=== PATIENT | male | born 1985 | race Caucasian/White ===

== ENCOUNTER 2017-05-19 01:16 | Emergency (ER) | payer OTHER, SELFPAY ==
--- NOTE | 2017-05-19 01:43 | ERPHSYRPT ---
- History of Present Illness Time Seen by Provider: 05/19/17 01:40 Source: patient, police Exam Limitations: no limitations Patient Subjective Stated Complaint: per law enforcement, pt had a recent break up and has been cutting his arm and leg to release pain. pt denies any suicidal or homicidal ideation Triage Nursing Assessment: pt alert and oriented, answers questions approp. pt ambulatory with steady gait noted. respirations nonlabored with lungs cta. multiple superficial cuts to rt forearm and rt upper leg. no bleeding noted at this ti me. Physician History: per law enforcement, pt had a recent break up and has been cutting his arm and leg to release pain. pt denies any suicidal or homicidal ideation Context related to: significant other Suicidal thoughts: attempt, gesture Associated Symptoms: anxiety Previous symptoms: same symptoms as today Allergies/Adverse Reactions: No Known Drug Allergies Allergy (Verified 05/19/17 01:34) Home Medications: Clonazepam [Klonopin] 0.5 mg PO DAILY PRN PRN 05/19/17 [History] Paroxetine HCl [Paroxetine HCl] 20 mg PO BID 05/19/17 [History] Hx Tetanus, Diphtheria Vaccination/Date Given: Yes (2010) Hx Influenza Vaccination/Date Given: Yes (2013) Hx Pneumococcal Vaccination/Date Given: No Immunizations Up to Date: Yes - Past Medical History Pertinent Past Medical History: Yes Neurological History: Migraines ENT History: No Pertinent History Cardiac History: No Pertinent History Respiratory History: No Pertinent History Endocrine Medical History: No Pertinent History Musculoskeletal History: No Pertinent History GI Medical History: No Pertinent History, Hepatitis History: No Pertinent History Psycho-Social History: Anxiety, Bipolar, Depression Male Reproductive Disorders: No Pertinent History Other Medical History: chronic pain - Past Surgical History Past Surgical History: No Neuro Surgical History: No Pertinent History Cardiac: No Pertinent History Respiratory: No Pertinent History Gastrointestinal: No Pertinent History Genitourinary: No Pertinent History Musculoskeletal: No Pertinent History Male Surgical History: No Pertinent History - Social History Smoking Status: Current every day smoker How long have you smoked: 13 years Exposure to second hand smoke: No Drug Use: none Patient Lives Alone: No - Review of Systems Constitutional: No Fever, No Chills Eyes: No Symptoms Ears, Nose, & Throat: No Symptoms Respiratory: No Cough, No Dyspnea Cardiac: No Chest Pain, No Edema, No Syncope Abdominal/Gastrointestinal: No Abdominal Pain, No Nausea, No Vomiting, No Diarrhea Genitourinary Symptoms: No Dysuria Musculoskeletal: No Back Pain, No Neck Pain Skin: No Rash Neurological: No Dizziness, No Focal Weakness, No Sensory Changes Psychological: Alcohol Abuse, Anxiety, Depression, Emotional Lability, No Suicidal Ideations, No Homicidal Ideations Endocrine: No Symptoms All Other Systems: Reviewed and Negative - Nursing Vital Signs Nursing Vital Signs: Initial Vital Signs Temperature 98.0 F 05/19/17 01:22 Pulse Rate 91 H 05/19/17 01:22 Respiratory Rate 16 05/19/17 01:22 Blood Pressure 137/78 05/19/17 01:22 O2 Sat by Pulse Oximetry 98 05/19/17 01:22 Pain Scale Pain Intensity 6 - Physical Exam General Appearance: no apparent distress Eyes, Ears, Nose, Throat Exam: normal ENT inspection, moist mucous membranes Neck Exam: normal inspection, non-tender, supple Respiratory Exam: normal breath sounds, lungs clear, No respiratory distress Cardiovascular Exam: regular rate/rhythm, No edema Gastrointestinal/Abdominal Exam: soft, No tenderness, No distention Extremities Exam: normal inspection, normal range of motion, No evidence of injury, No edema Current Suicidality: denies suicide plan Neurological Exam: alert, golf ball marker II-XII nml as tested, oriented x 3 Appearance: disheveled Behavior/Eye Contact/Speech: alert & cooperative Thoughts/Hallucinations: no apparent hallucination Skin Exam: normal color, warm, dry, other (multiple superficial lacerations on right forearm), No rash SpO2: 98 Oxygen Delivery: Room Air - Course Nursing assessment & vital signs reviewed: Yes Ordered Tests: Active Orders 24 hr Category Date Time Status Psychiatric Evaluation STAT Care 05/19/17 01:39 Active ACETAMINOPHEN Stat Lab 05/19/17 01:50 Completed CBC W DIFF Stat Lab 05/19/17 01:50 Completed CMP Stat Lab 05/19/17 01:50 Completed ETHYL ALCOHOL Stat Lab 05/19/17 01:50 Completed UA W/RFX UR CULTURE Stat Lab 05/19/17 01:45 Completed Urine Triage Profile Stat Lab 05/19/17 01:45 Completed Lab/Rad Data: Laboratory Result Diagrams 05/19/17 01:50 05/19/17 01:50 Laboratory Results 05/19/17 05/19/17 05/19/17 Range/Units 01:50 01:50 01:45 WBC 10.6 H (4.0-10.5) K/mm3 RBC 5.04 (4.1-5.6) M/mm3 Hgb 15.6 (12.5-18.0) gm/dl Hct 46.4 (42-50) % MCV 92.1 (78-100) fl MCH 31.0 (26-32) pg MCHC 33.6 (32-36) g/dl RDW 14.3 H (11.5-14.0) % Plt Count 228 (150-450) K/mm3 MPV 10.6 H (6-9.5) fl Gran % 62.4 (36.0-66.0) % Lymphocytes % 29.2 (24.0-44.0) % Monocytes % 6.3 (0.0-12.0) % Eosinophils % 1.7 (0.00-5.0) % Basophils % 0.4 (0.0-0.4) % Basophils # 0.04 (0-0.4) Sodium 140 (136-145) mEq/L Potassium 3.5 (3.5-5.1) mEq/L Chloride 103 (98-107) mEq/L Carbon Dioxide 26.3 (21-32) mEq/L Anion Gap 14.0 (5-15) MEQ/L BUN 9 (9-20) mg/dL Creatinine 1.01 (0.55-1.30) mg/dl Estimated GFR > 60 ML/MIN Glucose 103 (70-110) MG/DL Calcium 9.1 (8.5-10.1) mg/dL Total Bilirubin 0.30 (0.2-1.0) mg/dL AST 182 H (15-37) U/L ALT 257 H (12-78) U/L Alkaline Phosphatase 103 (46-116) U/L Serum Total Protein 7.6 (6.4-8.2) gm/dL Albumin 3.9 (3.4-5.0) g/dL Ur Collection Type Urine Color (YELLOW) Urine Appearance (CLEAR) Urine pH (5-6) Ur Specific [place] (1.005-1.025) Urine Protein (Negative) Urine Ketones (NEGATIVE) Urine Blood (0-5) Tom/ul Urine Nitrite (NEGATIVE) Urine Bilirubin (NEGATIVE) Urine Urobilinogen (0-1) mg/dL Ur Leukocyte Esterase (NEGATIVE) Urine Culture Reflexed (NO) Urine Glucose (NEGATIVE) mg/dL Urine Opiates Level NEG. (NEGATIVE) Ur Methadone NEG. (NEGATIVE) Acetaminophen 3.6 L (10-30) ug/ml Urine Barbiturates NEG. (NEGATIVE) Ur Phencyclidine (PCP) NEG. (NEGATIVE) Urine Amphetamine NEG. (NEGATIVE) U Benzodiazepine Level NEG. (NEGATIVE) Urine Cocaine NEG. (NEGATIVE) Urine Marijuana (THC) POS. (NEGATIVE) Ethyl Alcohol 0.061 H (0.00-0.01) % Specimen Received 05/19/17 Range/Units 01:45 WBC (4.0-10.5) K/mm3 RBC (4.1-5.6) M/mm3 Hgb (12.5-18.0) gm/dl Hct (42-50) % MCV (78-100) fl MCH (26-32) pg MCHC (32-36) g/dl RDW (11.5-14.0) % Plt Count (150-450) K/mm3 MPV (6-9.5) fl Gran % (36.0-66.0) % Lymphocytes % (24.0-44.0) % Monocytes % (0.0-12.0) % Eosinophils % (0.00-5.0) % Basophils % (0.0-0.4) % Basophils # (0-0.4) Sodium (136-145) mEq/L Potassium (3.5-5.1) mEq/L Chloride (98-107) mEq/L Carbon Dioxide (21-32) mEq/L Anion Gap (5-15) MEQ/L BUN (9-20) mg/dL Creatinine (0.55-1.30) mg/dl Estimated GFR ML/MIN Glucose (70-110) MG/DL Calcium (8.5-10.1) mg/dL Total Bilirubin (0.2-1.0) mg/dL AST (15-37) U/L ALT (12-78) U/L Alkaline Phosphatase (46-116) U/L Serum Total Protein (6.4-8.2) gm/dL Albumin (3.4-5.0) g/dL Ur Collection Type CLEAN CATCH Urine Color YELLOW (YELLOW) Urine Appearance CLEAR (CLEAR) Urine pH 6.5 (5-6) Ur Specific [place] 1.005 (1.005-1.025) Urine Protein NEGATIVE (Negative) Urine Ketones NEGATIVE (NEGATIVE) Urine Blood NEGATIVE (0-5) Tom/ul Urine Nitrite NEGATIVE (NEGATIVE) Urine Bilirubin NEGATIVE (NEGATIVE) Urine Urobilinogen NORMAL (0-1) mg/dL Ur Leukocyte Esterase NEGATIVE (NEGATIVE) Urine Culture Reflexed NO (NO) Urine Glucose NEGATIVE (NEGATIVE) mg/dL Urine Opiates Level (NEGATIVE) Ur Methadone (NEGATIVE) Acetaminophen (10-30) ug/ml Urine Barbiturates (NEGATIVE) Ur Phencyclidine (PCP) (NEGATIVE) Urine Amphetamine (NEGATIVE) U Benzodiazepine Level (NEGATIVE) Urine Cocaine (NEGATIVE) Urine Marijuana (THC) (NEGATIVE) Ethyl Alcohol (0.00-0.01) % Specimen Received 05/19/17 0145 - Progress Progress: improved Progress Note: 05/19/17 05:13 Patient is not suicidal, wants to go home, theree is another responsible adult present with him. Counseled pt/family regarding: lab results, diagnosis, need for follow-up - Departure Time of Disposition: 05:14 Departure Disposition: Home Clinical Impression: Anxiety and depression Condition: Stable Critical Care Time: No Referrals: ANNI TAVARES [Primary Care Provider] - Instructions: Anxiety -- Adult
[2017-05-19 02:00] LABS: BASOPHIL % 0.4 % (0.0-0.4); Eosinophil % 1.7 % (0.00-5.0); Granulocytes % 62.4 % (36.0-66.0); Lymphocytes % 29.2 % (24.0-44.0); Mean Cell Volume 92.1 fl (78-100); Mean Platelet Volume 10.6 fl (6-9.5); Monocytes % 6.3 % (0.0-12.0); Platelet Count 228 K/mm3 (150-450); Red Blood Count 5.04 M/mm3 (4.1-5.6); Red Cell Distribution Width 14.3 % (11.5-14.0); White Blood Count 10.6 K/mm3 (4.0-10.5)
[2017-05-19 02:01] LABS: Collection Type CLEAN CATCH
[2017-05-19 02:03] LABS: Bilirubin NEGATIVE (NEGATIVE); Blood NEGATIVE Ery/ul (0-5); COMPLETE URINE MICROSCOPIC? NO; Glucose NEGATIVE (NEGATIVE); Leukocyte Esterase NEGATIVE (NEGATIVE)
[2017-05-19 02:04] LABS: ADD URINE CULTURE? NO (NO)
[2017-05-19 02:25] LABS: ACETAMINOPHEN 3.6 ug/ml (10-30); ALBUMIN 3.9 g/dL (3.4-5.0); ALKALINE PHOSPHATASE 103 U/L (46-116); BLOOD UREA NITROGEN 9 mg/dL (9-20); CHLORIDE 103 mEq/L (98-107); Carbon Dioxide 26.3 mEq/L (21-32); ETHYL ALCOHOL 0.061 % (0.00-0.01); Glucose 103 MG/DL (70-110); Potassium 3.5 mEq/L (3.5-5.1); SGOT/AST 182 U/L (15-37); SGPT/ALT 257 U/L (12-78); SODIUM 140 mEq/L (136-145); Total Protein 7.6 gm/dL (6.4-8.2)
[2017-05-19 03:38] VITALS: BP 118/63; PULSE 75
[2017-05-19 05:16] VITALS: O2SAT 98
[2017-05-19] MEDS ORDERED: BACIGUENT PACKET TP ONE (05:35)
== END 2017-05-19 05:22 | disposition home or self-care (01) ==
LOC: ED 01:16
DX: F41.9 Anxiety disorder, unspecified (principal); F32.9 Major depressive disorder, single episode, unspecified; Z79.899 Other long term (current) drug therapy
CPT/HCPCS: 36415; 80053; 80307; 81002; 85025; 99283; G0481; A9270-GY